=== PATIENT | female | born 1970 | race African-American/Black ===

== ENCOUNTER 2019-12-25 13:49 | Day surgery (SDC) | payer OTHER ==
[2019-12-22 17:24] VITALS: BMI 28.6
[2019-12-25] MEDS ORDERED: MIDAZOLAM HCL 2 MG/2 ML SINGLE DOSE VIAL ONE ×2 (16:08)
--- NOTE | 2019-12-25 16:39 | OP ---
Operative Note - Note: Operative Date: 12/25/19 Pre-Operative Diagnosis: Left renal stone Operation: Left ESWL Findings: 5 mm lower pole Left renal stone Post-Operative Diagnosis: Same as Pre-op Surgeon: Gómez Rodarte Anesthesia: Fractional, Topical Estimated Blood Loss (mls): 0 Operative Report Dictated: Yes
[2019-12-25] MEDS ORDERED: PROPOFOL 20 ML ONE ×3 (17:03→17:05)
[2019-12-25 18:06] VITALS: BP 122/77; PULSE 53; TEMP 97.3
--- NOTE | 2019-12-26 00:26 | OP ---
DATE OF OPERATION: 12/25/2019 PREOPERATIVE DIAGNOSIS: Left renal stone. POSTOPERATIVE DIAGNOSIS: Left renal stone. PROCEDURE: Left extracorporeal shockwave lithotripsy. ATTENDING: Meg Rodarte M.D. ANESTHESIA: Fractional. DESCRIPTION OF PROCEDURE: Patient was brought in the operating room, placed in a supine position on the operating room table. Ultrasonography and fluoroscopy were performed. A 5-mm left lower pole stone was identified. At this point, anesthesia and preoperative antibiotics were administered. 2500 impulses at 17 joules of power were administered to the stone with excellent fragmentation noted. There were no complications noted. DISPOSITION: To recovery room. MEG OLIVA M.D. [id number]
== END 2019-12-25 19:03 | disposition home or self-care (01) ==
LOC: JASU-SURG 13:49
PROVIDERS: ATTEND Urology
PROC: 0TF4XZZ Fragmentation in Left Kidney Pelvis, External Approach (ICD-10-PCS; principal; 2019-12-25 16:15)
DX: N20.0 Calculus of kidney (principal)

== ENCOUNTER 2020-05-01 05:37 | Day surgery (SDC) | payer OTHER ==
[2020-05-01 10:52] VITALS: TEMP 97.7
[2020-05-01 11:13] VITALS: PULSE 56
[2020-05-01 12:13] VITALS: BP 114/83
== END 2020-05-01 12:30 | disposition home or self-care (01) ==
LOC: JASU-ENDO 05:37
PROVIDERS: ATTEND Internal Medicine Gastroenterology
PROC: 0DBL8ZX Excision of Transverse Colon, Via Natural or Artificial Opening Endoscopic, Diagnostic (ICD-10-PCS; 2020-05-01)
PROC: 0DBN8ZX Excision of Sigmoid Colon, Via Natural or Artificial Opening Endoscopic, Diagnostic (ICD-10-PCS; principal; 2020-05-01 10:00)
DX: Z12.11 Encounter for screening for malignant neoplasm of colon (principal); Z86.010 Personal history of colon polyps; D12.5 Benign neoplasm of sigmoid colon; D12.3 Benign neoplasm of transverse colon; K57.30 Diverticulosis of large intestine without perforation or abscess without bleeding; K64.8 Other hemorrhoids
CPT/HCPCS: 88305-TC

== ENCOUNTER 2022-10-20 04:17 | Day surgery (SDC) | payer OTHER ==
[2022-10-20] MEDS ORDERED: LIDOCAINE HCL/PF 1% SDV 5ML VIAL ONE (07:18)
[2022-10-20] MEDS ORDERED: DEXAMETHASONE SOD PHOSPHATE 10 MG/1 ML VIAL ONE ×2 (07:18→13:14)
[2022-10-20] MEDS ORDERED: IOHEXOL 180 MG/1 ML ML IJ ONE ×2 (13:17→13:22)
[2022-10-20] MEDS ORDERED: LIDOCAINE HCL 1% PRESERVATIVE FREE - 30ML VIAL IJ ONE ×2 (13:17→13:18)
[2022-10-20] MEDS ORDERED: DEXAMETHASONE SOD PHOSPHATE 10 MG/1 ML VIAL IM ONE ×2 (13:18→13:26)
[2022-10-20 14:11] VITALS: RESP 16
[2022-10-20 15:19] VITALS: BP 125/75; PULSE 65; TEMP 97.2
== END 2022-10-20 15:15 | disposition home or self-care (01) ==
LOC: JASU-SURG 04:17
PROVIDERS: ATTEND Pain Medicine Pain Medicine
PROC: 3E0R3BZ Introduction of Anesthetic Agent into Spinal Canal, Percutaneous Approach (ICD-10-PCS; 2022-10-20)
PROC: 3E0R33Z Introduction of Anti-inflammatory into Spinal Canal, Percutaneous Approach (ICD-10-PCS; principal; 2022-10-20 14:15)
DX: M54.16 Radiculopathy, lumbar region (principal)
CPT/HCPCS: 76000-TC-FY; J1100

== ENCOUNTER 2022-11-20 03:53 | Day surgery (SDC) | payer OTHER ==
[~2022-11-20 03:53] MED LIST: LIDOCAINE HCL 1% PRESERVATIVE FREE - 30ML VIAL IJ ONE
[2022-11-20 06:29] VITALS: RESP 20; TEMP 97.7
[2022-11-20] MEDS ORDERED: LIDOCAINE HCL/PF 1% SDV 5ML VIAL ONE (07:21)
[2022-11-20] MEDS ORDERED: LIDOCAINE HCL 1% PRESERVATIVE FREE - 30ML VIAL IJ ONE (08:30)
[2022-11-20] MEDS ORDERED: ACETAMINOPHEN 500 MG TABLET (FP) ONE (09:00)
[2022-11-20] MEDS ORDERED: ACETAMINOPHEN 500 MG TABLET (FP) PO PRN (09:03)
[2022-11-20 09:14] VITALS: BP 112/74; PULSE 53
== END 2022-11-20 10:41 | disposition home or self-care (01) ==
LOC: JASU-SURG 03:53
PROVIDERS: ATTEND Pain Medicine Pain Medicine
PROC: 01HY3MZ Insertion of Neurostimulator Lead into Peripheral Nerve, Percutaneous Approach (ICD-10-PCS; principal; 2022-11-20 08:00)
DX: G89.4 Chronic pain syndrome (principal); M54.32 Sciatica, left side; M25.562 Pain in left knee
CPT/HCPCS: 64555; C1778

== ENCOUNTER 2022-12-11 05:27 | Day surgery (SDC) | payer OTHER ==
[2022-12-11] MEDS ORDERED: LIDOCAINE HCL/PF 1% SDV 5ML VIAL ONE (07:28)
[2022-12-11] MEDS ORDERED: LIDOCAINE HCL 1% PRESERVATIVE FREE - 30ML VIAL IJ ONE (08:46)
[2022-12-11] MEDS ORDERED: ACETAMINOPHEN 500 MG TABLET (FP) ONE (09:48)
[2022-12-11 10:05] VITALS: RESP 18
[2022-12-11 11:37] VITALS: BP 119/72; PULSE 60; TEMP 97.9
[2022-12-11] MEDS ORDERED: ACETAMINOPHEN 500 MG TABLET (FP) PO PRN (16:25)
== END 2022-12-11 10:23 | disposition home or self-care (01) ==
LOC: JASU-SURG 05:27
PROVIDERS: ATTEND Pain Medicine Pain Medicine
PROC: 01HY3MZ Insertion of Neurostimulator Lead into Peripheral Nerve, Percutaneous Approach (ICD-10-PCS; principal; 2022-12-11 08:45)
DX: G89.4 Chronic pain syndrome (principal); M54.89 Other dorsalgia
CPT/HCPCS: 64555; C1778; 76000-TC-FY

== ENCOUNTER 2022-12-18 23:35 | Observation (INO) | payer OTHER ==
[2022-12-18 23:45] VITALS: BMI 30.2
[2022-12-19] MEDS ORDERED: morphine CARPU-JECT 2 MG/1 ML DISP.SYRIN IVPUSH ONE (01:02)
[2022-12-19 01:33] LABS: BASO % 0.8 % (0-2.0); EOS % 0.7 % (0-4.5); HEMATOCRIT 38.6 % (32.4-45.2); HEMOGLOBIN 13.1 GM/dL (10.7-15.3); LYMPH % 18.1 % (8-40); MEAN PLT VOLUME 11.3 fl (7.5-11.1); MONO % 7.5 % (3.8-10.2); NEUT % 72.9 % (42.8-82.8); PLATELET COUNT 115 10^3/uL (134-434); RBC 4.38 M/mm3 (3.60-5.2); RDW 13.7 % (11.6-15.6); WHITE BLOOD COUNT 7.7 K/mm3 (4.0-10.0)
[2022-12-19 01:50] LABS: POTASSIUM 3.8 mmol/L (3.5-5.1)
[2022-12-19 01:52] LABS: BLOOD UREA NITROGEN 16.9 mg/dL (7-18); CALCIUM 9.9 mg/dL (8.5-10.1)
[2022-12-19 01:55] LABS: CREATININE 0.8 mg/dL (0.55-1.3)
[2022-12-19 01:57] LABS: BILIRUBIN,TOTAL 0.4 mg/dL (0.2-1); TOT PROT 7.6 g/dl (6.4-8.2)
[2022-12-19 02:37] LABS: EPI CELLS 19 /uL (0-25.1); HYALINE CASTS 2 /uL (0-3.1); URINE APPEARANCE CLEAR; URINE BACTERIA 49 /uL (0-1359); URINE BILIRUBIN NEGATIVE (NEGATIVE); URINE COLOR YELLOW; URINE GLUCOSE (UA) NEGATIVE (NEGATIVE); URINE KETONE NEGATIVE (NEGATIVE); URINE LEUK ESTERASE 2+ (NEGATIVE); URINE NITRITE NEGATIVE (NEGATIVE); URINE PROTEIN NEGATIVE (NEGATIVE); URINE RBC 9 /uL (0-23.9); URINE UROBILINOGEN 0.2 mg/dL (0.2-1.0); URINE WBC 36 /uL (0-25.8)
[2022-12-19 02:42] LABS: ERYTHROCYTE SEDIMENTATION RATE 12 mm/hr (0-30)
[2022-12-19] MEDS ORDERED: KETOROLAC TROMETHAMINE 30 MG/1 ML VIAL IM ONE (03:00)
[2022-12-19] MEDS ORDERED: KETOROLAC TROMETHAMINE 30 MG/1 ML VIAL ONE (03:04)
[2022-12-19] MEDS ORDERED: DALBAVANCIN HCL 1,500 MG in DEXTROSE 5%-WATER - 500 ML IVPB ONE (06:05)
[2022-12-19] MEDS ORDERED: AMPICILLIN NA/SULBACTAM NA 1.5 GM in SODIUM CHLORIDE 100 ML IVPB ONE (06:05)
[2022-12-19] MEDS ORDERED: diazePAM CARPU-JECT 10 MG/2 ML DISP.SYRIN IVPUSH ONE (06:07)
[2022-12-19] MEDS ORDERED: diazePAM CARPU-JECT 10 MG/2 ML DISP.SYRIN ONE (06:14)
[2022-12-19] MEDS ORDERED: AMPICILLIN NA/SULBACTAM NA 1.5 GM VIAL ONE (06:15)
[2022-12-19] MEDS ORDERED: DEXTROSE 5%-WATER 100 ML IVPB ONE (06:15)
[2022-12-19] MEDS ORDERED: ACETAMINOPHEN 1000 MG/100 ML BAG IVPB PRN (06:50)
[2022-12-19] MEDS: SODIUM CHLORIDE 1,000 ML IV SCH ×2 (08:36→14:41)
[2022-12-19] MEDS ORDERED: CYCLOBENZAPRINE HCL 10 MG TABLET (FP) PO PRN (13:13)
[2022-12-19] MEDS ORDERED: DULoxetine HCL 30 MG CAPSULE.DR PO SCH (13:15)
[2022-12-19] MEDS ORDERED: POLYETHYLENE GLYCOL 3350 255 GM BTL PO SCH (13:15)
[2022-12-19] MEDS: AMPICILLIN NA/SULBACTAM NA 1.5 GM in SODIUM CHLORIDE 100 ML IVPB SCH ×2 (14:40→21:19)
[2022-12-19] MEDS: POLYETHYLENE GLYCOL (HEALTHYLAX) 3350 17 GM PACKET PO SCH (14:40)
[2022-12-19] MEDS: PANTOPRAZOLE 40 MG TABLET PO SCH (14:40)
[2022-12-19] MEDS: GABAPENTIN 300 MG CAPSULE PO SCH ×2 (14:40→21:20)
[2022-12-19] MEDS: KETOROLAC TROMETHAMINE 30 MG/1 ML VIAL IVPUSH SCH (18:04)
[2022-12-19] MEDS: CYCLOBENZAPRINE HCL 5 MG TABLET PO SCH ×2 (21:30→22:13)
[2022-12-19] MEDS: DOCUSATE SODIUM 100 MG CAPSULE (FP) PO SCH ×2 (21:31→22:13)
[2022-12-19] MEDS: DULoxetine HCL 30 MG CAPSULE.DR PO SCH (21:31)
[2022-12-20] MEDS: KETOROLAC TROMETHAMINE 30 MG/1 ML VIAL IVPUSH SCH ×3 (02:37→18:40)
[2022-12-20] MEDS: AMPICILLIN NA/SULBACTAM NA 1.5 GM in SODIUM CHLORIDE 100 ML IVPB SCH ×2 (02:38→10:11)
[2022-12-20] MEDS: SODIUM CHLORIDE 1,000 ML IV SCH ×3 (02:40→15:09)
[2022-12-20] MEDS: CYCLOBENZAPRINE HCL 5 MG TABLET PO SCH ×3 (06:28→22:54)
[2022-12-20] MEDS: GABAPENTIN 300 MG CAPSULE PO SCH ×3 (06:28→22:54)
[2022-12-20 09:32] LABS: BASO % 0.6 % (0-2.0); EOS % 1.1 % (0-4.5); HEMATOCRIT 34.4 % (32.4-45.2); HEMOGLOBIN 11.9 GM/dL (10.7-15.3); LYMPH % 20.4 % (8-40); MCHC 34.6 g/dl (32.0-36.0); MEAN CELL VOLUME 86.8 fl (80-96); MEAN PLT VOLUME 11.4 fl (7.5-11.1); MONO % 7.4 % (3.8-10.2); NEUT % 70.5 % (42.8-82.8); PLATELET COUNT 100 10^3/uL (134-434); RBC 3.96 M/mm3 (3.60-5.2); RDW 13.9 % (11.6-15.6); WHITE BLOOD COUNT 5.5 K/mm3 (4.0-10.0)
[2022-12-20 09:47] LABS: POTASSIUM 3.1 mmol/L (3.5-5.1)
[2022-12-20 09:51] LABS: CALCIUM 9.1 mg/dL (8.5-10.1)
[2022-12-20 09:52] LABS: ALBUMIN 3.4 g/dl (3.4-5.0); BLOOD UREA NITROGEN 9.3 mg/dL (7-18)
[2022-12-20 09:55] LABS: CREATININE 0.6 mg/dL (0.55-1.3)
[2022-12-20 09:56] LABS: TOT PROT 6.7 g/dl (6.4-8.2)
[2022-12-20 09:57] LABS: BILIRUBIN,TOTAL 0.7 mg/dL (0.2-1)
[2022-12-20] MEDS ORDERED: DULoxetine HCL 60 MG CAPSULE.DR PO SCH (10:00)
[2022-12-20] MEDS: PANTOPRAZOLE 40 MG TABLET PO SCH (10:14)
[2022-12-20] MEDS: amLODIPine BESYLATE 10 MG TABLET (FP) PO SCH (10:14)
[2022-12-20] MEDS: POLYETHYLENE GLYCOL (HEALTHYLAX) 3350 17 GM PACKET PO SCH (10:14)
[2022-12-20] MEDS: DULoxetine HCL 30 MG CAPSULE.DR PO SCH ×2 (10:14→22:54)
[2022-12-20] MEDS: KCL 10 MEQ IVPB 10 MEQ/100 ML INFUS.BAG IVPB SCH ×3 (15:15→19:40)
[2022-12-20] MEDS: VANCOMYCIN/WATER 1250 MG 1,250 MG/250 ML BAG IVPB SCH (17:22)
[2022-12-20] MEDS: PIPERACILLIN/TAZOB 3.375 GM 3.375 GM in DEXTROSE 5%-WATER - 50 ML IVPB SCH (19:27)
[2022-12-20] MEDS: DOCUSATE SODIUM 100 MG CAPSULE (FP) PO SCH (22:54)
[2022-12-21] MEDS: SODIUM CHLORIDE 1,000 ML IV SCH (01:00)
[2022-12-21] MEDS: PIPERACILLIN/TAZOB 3.375 GM 3.375 GM in DEXTROSE 5%-WATER - 50 ML IVPB SCH ×3 (01:34→16:59)
[2022-12-21] MEDS: KETOROLAC TROMETHAMINE 30 MG/1 ML VIAL IVPUSH SCH ×3 (02:20→17:07)
[2022-12-21] MEDS: VANCOMYCIN/WATER 1250 MG 1,250 MG/250 ML BAG IVPB SCH ×2 (02:20→14:22)
[2022-12-21] MEDS: CYCLOBENZAPRINE HCL 5 MG TABLET PO SCH ×4 (06:51→21:36)
[2022-12-21] MEDS: GABAPENTIN 300 MG CAPSULE PO SCH ×3 (06:51→21:31)
[2022-12-21] MEDS: PANTOPRAZOLE 40 MG TABLET PO SCH (09:24)
[2022-12-21] MEDS: amLODIPine BESYLATE 10 MG TABLET (FP) PO SCH (09:24)
[2022-12-21] MEDS: DULoxetine HCL 30 MG CAPSULE.DR PO SCH ×2 (09:25→21:32)
[2022-12-21] MEDS: POLYETHYLENE GLYCOL (HEALTHYLAX) 3350 17 GM PACKET PO SCH (09:25)
[2022-12-21] MEDS ORDERED: POTASSIUM CHLORIDE TABS 10 MEQ TABLET.ER (FP) PO ONE (18:16)
[2022-12-21] MEDS: DOCUSATE SODIUM 100 MG CAPSULE (FP) PO SCH (21:45)
[2022-12-22] MEDS: KETOROLAC TROMETHAMINE 30 MG/1 ML VIAL IVPUSH SCH ×2 (01:30→09:40)
[2022-12-22] MEDS: SODIUM CHLORIDE 1,000 ML IV SCH ×2 (01:37→09:42)
[2022-12-22] MEDS: VANCOMYCIN/WATER 1250 MG 1,250 MG/250 ML BAG IVPB SCH (02:18)
[2022-12-22] MEDS: CYCLOBENZAPRINE HCL 5 MG TABLET PO SCH (05:05)
[2022-12-22] MEDS: GABAPENTIN 300 MG CAPSULE PO SCH (05:05)
[2022-12-22 06:27] VITALS: BP 121/80; PULSE 54; RESP 18; TEMP 97.9
[2022-12-22 07:55] LABS: EOS % 3.8 % (0-4.5); HEMATOCRIT 33.6 % (32.4-45.2); HEMOGLOBIN 11.8 GM/dL (10.7-15.3); LYMPH % 27.7 % (8-40); MCH 30.3 pg (25.7-33.7); MCHC 35.1 g/dl (32.0-36.0); MEAN CELL VOLUME 86.3 fl (80-96); MONO % 7.8 % (3.8-10.2); NEUT % 59.7 % (42.8-82.8); PLATELET COUNT 116 10^3/uL (134-434); RBC 3.89 M/mm3 (3.60-5.2); RDW 13.4 % (11.6-15.6); WHITE BLOOD COUNT 4.4 K/mm3 (4.0-10.0)
[2022-12-22 08:10] LABS: POTASSIUM 3.2 mmol/L (3.5-5.1)
[2022-12-22 08:13] LABS: ALBUMIN 3.4 g/dl (3.4-5.0); BLOOD UREA NITROGEN 8.8 mg/dL (7-18); MAGNESIUM 1.9 mg/dL (1.8-2.4)
[2022-12-22 08:16] LABS: CREATININE 0.6 mg/dL (0.55-1.3)
[2022-12-22 08:18] LABS: BILIRUBIN,TOTAL 0.7 mg/dL (0.2-1); TOT PROT 6.9 g/dl (6.4-8.2)
[2022-12-22] MEDS: PANTOPRAZOLE 40 MG TABLET PO SCH (09:39)
[2022-12-22] MEDS: DULoxetine HCL 30 MG CAPSULE.DR PO SCH (09:40)
[2022-12-22] MEDS: amLODIPine BESYLATE 10 MG TABLET (FP) PO SCH (09:40)
[2022-12-22] MEDS: POLYETHYLENE GLYCOL (HEALTHYLAX) 3350 17 GM PACKET PO SCH (09:41)
[2022-12-22] MEDS ORDERED: POTASSIUM CHLORIDE TABS 20 MEQ TABLET.ER (FP) PO ONE (11:15)
== END 2022-12-22 12:48 | disposition home or self-care (01) ==
LOC: JER 23:35 → JERBED 12-19 06:07 → J8W 12-19 09:04
PROVIDERS: ADMIT Family Medicine; ATTEND Family Medicine
PROC: 3E03329 Introduction of Other Anti-infective into Peripheral Vein, Percutaneous Approach (ICD-10-PCS; principal; 2022-12-19)
PROC: 3E033NZ Introduction of Analgesics, Hypnotics, Sedatives into Peripheral Vein, Percutaneous Approach (ICD-10-PCS; 2022-12-19)
PROC: 3E0233Z Introduction of Anti-inflammatory into Muscle, Percutaneous Approach (ICD-10-PCS; 2022-12-19)
PROC: 3E0333Z Introduction of Anti-inflammatory into Peripheral Vein, Percutaneous Approach (ICD-10-PCS; 2022-12-19)
DX: L03.312 Cellulitis of back [any part except buttock and flank] (principal); M54.9 Dorsalgia, unspecified; M43.26 Fusion of spine, lumbar region; Z98.890 Other specified postprocedural states; N20.0 Calculus of kidney; G89.4 Chronic pain syndrome; Z88.8 Allergy status to other drugs, medicaments and biological substances
CPT/HCPCS: 36415; 72131-TC; 80048; 80053; 81003; 83735; 85025; 85651; 86140; 87040; 87086; 97116-GP; 97161-GP; 99285-25; G0378; J0875